=== PATIENT | male | born 1975 ===

== ENCOUNTER 2018-12-05 20:58 | Inpatient (IN) | payer MEDICAID ==
[~2018-12-05] VITALS: Ht 172.7 cm; Wt 181.4 kg
--- NOTE | 2018-12-05 21:27 | NUR ---
Dr. Zabala at bedside for MSE.
[2018-12-05] MEDS ORDERED: PANTOPRAZOLE SODIUM 40 MG VIAL IV ONE (21:30)
[2018-12-05 21:53] LABS: BASOPHILS % (AUTO) 0.3 % (0.0-2.0); EOSINOPHILS # (AUTO) 0.1 K/uL (0.0-0.7); EOSINOPHILS % (AUTO) 1.4 % (0.0-7.0); LYMPHOCYTES # (AUTO) 0.8 K/uL (20.0-40.0); LYMPHOCYTES % (AUTO) 13.8 % (20.5-51.5); MEAN CORPUSCULAR HEMOGLOBIN 32.1 uug (23.8-33.4); MEAN CORPUSCULAR HGB CONC 34 g/dL (32.5-36.3); MEAN CORPUSCULAR VOLUME 93.7 fL (73.0-96.2); MONOCYTES # (AUTO) 0.2 K/uL (2.0-10.0); MONOCYTES % (AUTO) 4.2 % (0.0-11.0); NEUTROPHILS # (AUTO) 4.8 K/uL (1.8-8.9); NEUTROPHILS % (AUTO) 80.3 % (38.5-71.5); PLATELET COUNT (AUTO) 295 K/uL (152-348); WHITE BLOOD COUNT (AUTO) 5.9 K/uL (3.6-10.2)
--- NOTE | 2018-12-05 21:58 | NUR ---
Dr. Zabala on panel call with Dr. Walt Herrera.
[2018-12-05 22:01] LABS: HEMOGLOBIN 6.2 g/dL (12.5-16.3); RED BLOOD CELL COUNT(AUTO) 1.94 MIL/uL (4.06-5.63)
[2018-12-05 22:02] LABS: HEMATOCRIT 18.2 % (36.7-47.1)
[2018-12-05] MEDS ORDERED: PANTOPRAZOLE SODIUM 40 MG VIAL ONE (22:02)
[2018-12-05 22:13] LABS: LYMPHOCYTES % (MANUAL) 15 % (20-40); MONOCYTES % (MANUAL) 4 % (2-10)
[2018-12-05 22:14] LABS: EOSINOPHILS % (MANUAL) 1 % (0-8); NEUTROPHILS % (MANUAL) 80 % (42-75)
[2018-12-05 22:24] LABS: BILIRUBIN,DIRECT 0.4 mg/dL (0.0-0.2); BILIRUBIN,TOTAL 3.2 mg/dL (0.2-1.0); CREATININE 1.8 mg/dL (0.6-1.3); POTASSIUM 4.1 mmol/L (3.5-5.1); TOTAL PROTEIN, SERUM 7.3 g/dL (6.4-8.2)
--- NOTE | 2018-12-05 22:45 | NUR ---
Report given to Carrillo BAUGH Tele.
[2018-12-05] MEDS ORDERED: ACET-2154 PO (23:00)
[2018-12-05] MEDS ORDERED: POLY255P19 PO (23:00)
[2018-12-05] MEDS ORDERED: LEVO100T10 PO (23:00)
[2018-12-05] MEDS ORDERED: ALLO100T PO (23:00)
[2018-12-05] MEDS ORDERED: DOCU100C36 PO (23:00)
[2018-12-05] MEDS ORDERED: NYST15PO4 TP (23:00)
[2018-12-05] MEDS ORDERED: POTA-88 PO (23:00)
[2018-12-05] MEDS ORDERED: SENN-168 PO (23:00)
[2018-12-05] MEDS ORDERED: FURO40TA5 PO (23:00)
[2018-12-05] MEDS ORDERED: [UNRECOGNIZED DRUG - CODE] IJ (23:00)
[2018-12-05] MEDS ORDERED: ONDA4TAB5 PO (23:00)
[2018-12-05] MEDS ORDERED: OMEP40CA37 PO (23:00)
[2018-12-05] MEDS ORDERED: MULT-213 PO (23:00)
[2018-12-05] MEDS ORDERED: CALC-903 PO (23:00)
[2018-12-05] MEDS ORDERED: RUXO15TA PO (23:00)
[2018-12-05] MEDS ORDERED: Z GUARD REMEDY PASTE 57 GM TUBE TOP PRN (23:15)
[2018-12-05] MEDS ORDERED: ONDANSETRON 4 MG/2 ML VIAL IV PRN (23:15)
[2018-12-05] MEDS ORDERED: CALCIUM CARBONATE 600 MG TABLET PO PRN (23:15)
[2018-12-05] MEDS ORDERED: ACETAMINOPHEN 325 MG TABLET PO PRN (23:15)
[2018-12-05 23:40] VITALS: BP 113/59
[2018-12-05 23:50] VITALS: BP 113/59
[2018-12-06] VITALS (16 sets, daily range): BP systolic 89–106; BP diastolic 42–61
[2018-12-06 06:26] LABS: BASOPHILS % (AUTO) 0.5 % (0.0-2.0); EOSINOPHILS # (AUTO) 0.1 K/uL (0.0-0.7); LYMPHOCYTES # (AUTO) 0.9 K/uL (20.0-40.0); MONOCYTES # (AUTO) 0.3 K/uL (2.0-10.0)
[2018-12-06 06:29] LABS: EOSINOPHILS % (AUTO) 1.3 % (0.0-7.0); LYMPHOCYTES % (AUTO) 16.9 % (20.5-51.5); MEAN CORPUSCULAR HEMOGLOBIN 32.5 uug (23.8-33.4); MEAN CORPUSCULAR HGB CONC 35 g/dL (32.5-36.3); MEAN CORPUSCULAR VOLUME 92.8 fL (73.0-96.2); MONOCYTES % (AUTO) 5.6 % (0.0-11.0); NEUTROPHILS % (AUTO) 75.7 % (38.5-71.5); PLATELET COUNT (AUTO) 259 K/uL (152-348); WHITE BLOOD COUNT (AUTO) 5.3 K/uL (3.6-10.2)
[2018-12-06] MEDS: LEVOTHYROXINE SODIUM 100 MCG TABLET PO SCH (06:31)
[2018-12-06 06:37] LABS: HEMATOCRIT 17.6 % (36.7-47.1); HEMOGLOBIN 6.2 g/dL (12.5-16.3)
--- NOTE | 2018-12-06 06:53 | NUR ---
Admitted pt to room 228; no acute distress; started one unit PRBC and tolerated well; H/H this Am is 6.2 and 27.6; referred to Labor Mediator Wolfgang VALDEZ NP made aware and new orders made and carried out.
[2018-12-06 06:59] LABS: BILIRUBIN,TOTAL 3.5 mg/dL (0.2-1.0); CREATININE 1.6 mg/dL (0.6-1.3); PHOSPHOROUS 4.6 mg/dL (2.5-4.9); POTASSIUM 3.7 mmol/L (3.5-5.1); TOTAL PROTEIN, SERUM 6.6 g/dL (6.4-8.2)
[2018-12-06] MEDS: NYSTATIN POWDER 15 GM BOTTLE TP SCH ×2 (09:00→17:50)
[2018-12-06] MEDS: MIRALAX 17 GM POWD.PACK PO SCH (09:00)
[2018-12-06] MEDS: PANTOPRAZOLE SODIUM 40 MG VIAL IV SCH ×2 (09:10→20:57)
[2018-12-06] MEDS: ALLOPURINOL 100 MG TABLET PO SCH (09:11)
[2018-12-06] MEDS: FUROSEMIDE 40 MG TABLET PO SCH (09:11)
[2018-12-06] MEDS: SENNOSIDES 1 TABLET PO SCH (09:11)
[2018-12-06 09:29] LABS: EOSINOPHILS % (MANUAL) 1 % (0-8); LYMPHOCYTES % (MANUAL) 17 % (20-40); MONOCYTES % (MANUAL) 5 % (2-10); NEUTROPHILS % (MANUAL) 77 % (42-75)
[2018-12-06 16:46] LABS: HEMATOCRIT 19.9 % (36.7-47.1)
[2018-12-06 16:47] LABS: HEMOGLOBIN 6.9 g/dL (12.5-16.3)
--- NOTE | 2018-12-06 19:04 | NUR ---
patient has been cooperative with care, all needs met throughout shift, patient tolerated transfusion, h/h increased to 6.9, and new transfussion ordered for 1 unit PRBC.
--- NOTE | 2018-12-06 19:29 | NUR ---
RECEIVED PT AWAKE, ALERT AND ORIENTEDX4. PT SHOWS NO SIGNS OF ACUTE DISTRESS.PT IV INTACT. PT ON HAMPTON CATHETER.SAFETY AND COMFORT PROVIDED. WILL CONTINUE TO MONITOR.
[2018-12-07] VITALS (12 sets, daily range): BP systolic 91–125; BP diastolic 45–59
--- NOTE | 2018-12-07 06:08 | NUR ---
PT TOLERATED BLOOD TRANSFUSION. PT VITAL SIGNS WNL. PT STABLE. PT SLEPT THROUGHOUT THE SHIFT. PT SHOWS NO SIGNS OF DISTRESS. PT IV INTACT. HAMPTON CATHETER INTACT.PT COOPERATIVE WITH CARE. PRESCRIBED MEDICATION GIVEN AND PT TOLERATED IT WELL. SAFETY AND COMFORT PROVIDED. WILL ENDORSE ACCORDINGLY TO INCOMING NURSE FOR CONTINUITY OF CARE.
[2018-12-07] MEDS: LEVOTHYROXINE SODIUM 100 MCG TABLET PO SCH (06:31)
[2018-12-07 06:39] LABS: EOSINOPHILS # (AUTO) 0.1 K/uL (0.0-0.7); LYMPHOCYTES # (AUTO) 0.5 K/uL (20.0-40.0); MONOCYTES # (AUTO) 0.3 K/uL (2.0-10.0)
[2018-12-07 06:41] LABS: BASOPHILS % (AUTO) 0.4 % (0.0-2.0); HEMATOCRIT 21.1 % (36.7-47.1); LYMPHOCYTES % (AUTO) 8.4 % (20.5-51.5); MEAN CORPUSCULAR HEMOGLOBIN 31.3 uug (23.8-33.4); MEAN CORPUSCULAR HGB CONC 35 g/dL (32.5-36.3); MEAN CORPUSCULAR VOLUME 89.7 fL (73.0-96.2); MONOCYTES % (AUTO) 4.8 % (0.0-11.0); NEUTROPHILS # (AUTO) 4.9 K/uL (1.8-8.9); NEUTROPHILS % (AUTO) 85.4 % (38.5-71.5); PLATELET COUNT (AUTO) 245 K/uL (152-348); WHITE BLOOD COUNT (AUTO) 5.8 K/uL (3.6-10.2)
[2018-12-07 06:47] LABS: HEMOGLOBIN 7.3 g/dL (12.5-16.3); RED BLOOD CELL COUNT(AUTO) 2.35 MIL/uL (4.06-5.63)
[2018-12-07 06:52] LABS: CREATININE 1.4 mg/dL (0.6-1.3); POTASSIUM 3.3 mmol/L (3.5-5.1)
[2018-12-07] MEDS ORDERED: POTASSIUM CHLORIDE 20 MEQ TAB.PRT.SR PO ONE (07:45)
[2018-12-07] MEDS: SENNOSIDES 1 TABLET PO SCH (08:29)
[2018-12-07] MEDS: ALLOPURINOL 100 MG TABLET PO SCH (08:29)
[2018-12-07] MEDS: MIRALAX 17 GM POWD.PACK PO SCH (08:30)
[2018-12-07] MEDS: NYSTATIN POWDER 15 GM BOTTLE TP SCH ×2 (08:30→17:01)
[2018-12-07] MEDS: PANTOPRAZOLE SODIUM 40 MG VIAL IV SCH (08:30)
[2018-12-07] MEDS: FUROSEMIDE 40 MG TABLET PO SCH (08:30)
[2018-12-07] MEDS: MUPIROCIN 2% OINT 22 GM TUBE NS SCH ×2 (16:00→20:24)
[2018-12-07] MEDS: PANTOPRAZOLE SODIUM 40 MG TABLET.DR PO SCH (16:58)
[2018-12-07 17:54] LABS: *OCCULT BLOOD STOOL NEGATIVE (NEGATIVE)
--- NOTE | 2018-12-07 19:02 | NUR ---
Patient placed on MRSA contact isolation for nares, BM sent for OB stool. patient tolerated physical therapy. no distress noted at this time, bed in low position side rails up x2. call light in reach.
--- NOTE | 2018-12-07 19:20 | NUR ---
RECEIVED PT AWAKE, ALERT AND ORIENTEDX4. PT SHOWS NO SIGNS OF ACUTE DISTRESS. IV INTACT.HAMPTON CATHETER INTACT. SAFETY AND COMFORT PROVIDED. WILL CONTINUE TO MONITOR.
[2018-12-08 04:53] VITALS: BP 105/52
[2018-12-08] MEDS: PANTOPRAZOLE SODIUM 40 MG TABLET.DR PO SCH ×2 (06:04→16:43)
--- NOTE | 2018-12-08 06:11 | NUR ---
PT TOLERATED THE BLOOD TRANSFUSION. PT STABLE. PT SLEPT THROUGHOUT THE SHIFT. PT SHOWS NO SIGNS OF ACUTE DISTRESS. PRESCRIBED MEDICATION GIVEN AND PT TOLERATED IT WELL. SAFETY AND COMFORT PROVIDED. WILL ENDORSE ACCORDINGLY TO INCOMING NURSE FOR CONTINUITY OF CARE.
[2018-12-08] MEDS: LEVOTHYROXINE SODIUM 100 MCG TABLET PO SCH (06:37)
--- NOTE | 2018-12-08 07:10 | NUR ---
RECEIVED REPORT FROM BEHAVIORAL SCIENCES INSTRUCTOR NURSE, PATIENT IN BED ASLEEP, NO DISTRESS NOTED AT THIS TIME, BED IN LOW POSITION, SIDE RAILS UP X2. BED ALARM ON.
[2018-12-08 08:05] LABS: *IMMUNOGLOBULIN G, SERUM 1686 mg/dL (700-1600); IMMUNOGLOBULIN A, SERUM 357 mg/dL (90-386); IMMUNOGLOBULIN M, SERUM 44 mg/dL (20-172)
[2018-12-08 08:53] LABS: BASOPHILS % (AUTO) 0.5 % (0.0-2.0); EOSINOPHILS # (AUTO) 0.1 K/uL (0.0-0.7); EOSINOPHILS % (AUTO) 1.3 % (0.0-7.0); HEMATOCRIT 22.2 % (36.7-47.1); HEMOGLOBIN 7.8 g/dL (12.5-16.3); LYMPHOCYTES # (AUTO) 0.4 K/uL (20.0-40.0); LYMPHOCYTES % (AUTO) 7.1 % (20.5-51.5); MEAN CORPUSCULAR HEMOGLOBIN 31.5 uug (23.8-33.4); MEAN CORPUSCULAR HGB CONC 35 g/dL (32.5-36.3); MEAN CORPUSCULAR VOLUME 89.6 fL (73.0-96.2); MONOCYTES # (AUTO) 0.3 K/uL (2.0-10.0); MONOCYTES % (AUTO) 5.1 % (0.0-11.0); NEUTROPHILS # (AUTO) 5.2 K/uL (1.8-8.9); PLATELET COUNT (AUTO) 227 K/uL (152-348); RED BLOOD CELL COUNT(AUTO) 2.48 MIL/uL (4.06-5.63); WHITE BLOOD COUNT (AUTO) 6.1 K/uL (3.6-10.2)
[2018-12-08] MEDS: MUPIROCIN 2% OINT 22 GM TUBE NS SCH ×2 (09:02→20:23)
[2018-12-08] MEDS: ALLOPURINOL 100 MG TABLET PO SCH (09:03)
[2018-12-08] MEDS: MIRALAX 17 GM POWD.PACK PO SCH (09:03)
[2018-12-08] MEDS: FUROSEMIDE 40 MG TABLET PO SCH (09:03)
[2018-12-08] MEDS: SENNOSIDES 1 TABLET PO SCH (09:03)
[2018-12-08] MEDS: NYSTATIN POWDER 15 GM BOTTLE TP SCH ×2 (09:04→16:45)
[2018-12-08 11:11] LABS: A/G RATIO 0.9 (0.7-1.7); ALBUMIN 2.9 g/dL (2.9-4.4); ALPHA-1-GLOBULIN 0.2 g/dL (0.0-0.4); ALPHA-2-GLOBULIN 0.4 g/dL (0.4-1.0); BETA GLOBULIN 0.9 g/dL (0.7-1.3); GAMMA GLOBULIN 1.5 g/dL (0.4-1.8); GLOBULIN, TOTAL 3.1 g/dL (2.2-3.9); M-SPIKE Not Observed g/dL (Not Observed)
[2018-12-08 11:43] VITALS: BP 105/56
[2018-12-08 15:27] VITALS: BP 100/54
--- NOTE | 2018-12-08 17:59 | NUR ---
patient has been cooperative with care, all needs met. Patients discharge paperwork has been completed, but ambulance changed cook pickled meat to later time. Currently patient in bed, no distress noted at this time, bed in low position, side rails up x2.
--- NOTE | 2018-12-08 19:32 | NUR ---
PATIENT AWAKE IN BED, AAOX3. NO C.O PAIN OR ANY DISTRESS ON ASSESSMENT, AWAITING FOR AMBULANCE TO TRANSFER PATIENT
--- NOTE | 2018-12-08 21:00 | NUR ---
Patient discharged to [facility] in stable condition. vss stable, no c/o pain on discharge
== END 2018-12-08 21:00 | disposition home health service (06) | DRG 694 ==
LOC: ER 20:58 → TELE 23:02 → MED 12-07 14:26
PROVIDERS: ADMIT Nurse Practitioner Acute Care; ATTEND Nurse Practitioner Acute Care
PROC: 30233N1 Transfusion of Nonautologous Red Blood Cells into Peripheral Vein, Percutaneous Approach (ICD-10-PCS; principal; 2018-12-05)
DX: C94.6 Myelodysplastic disease, not elsewhere classified (principal); D75.81 Myelofibrosis; D63.0 Anemia in neoplastic disease; N17.0 Acute kidney failure with tubular necrosis; E66.01 Morbid (severe) obesity due to excess calories; Z68.44 Body mass index [BMI] 60.0-69.9, adult; E44.1 Mild protein-calorie malnutrition; E86.9 Volume depletion, unspecified; Z22.322 Carrier or suspected carrier of Methicillin resistant Staphylococcus aureus; Z90.49 Acquired absence of other specified parts of digestive tract; T45.1X5A Adverse effect of antineoplastic and immunosuppressive drugs, initial encounter; Y92.099 Unspecified place in other non-institutional residence as the place of occurrence of the external cause; Z79.890 Hormone replacement therapy; T50.1X5A Adverse effect of loop [high-ceiling] diuretics, initial encounter
CPT/HCPCS: 36415; 71045; 82784; 83690; 83735; 84100; 84155; 84165; 85018; 85025; 85730; 86334; 86850; 86900; 86901; 86920; 93005; 97110; 97116; 97530; A4663; C9113; G0378; J7040; J7050; J8499; P9016-BL; P9021